=== PATIENT | female | born 2000 | race Caucasian/White ===

== ENCOUNTER 2024-03-04 15:54 | Outpatient (CLI) | payer SELFPAY | END 2024-03-04 23:59 | disposition home or self-care (01) | LOC: RT 15:58 | PROVIDERS: PCP Family Medicine; Visit Provider Family Medicine | DX: R00.2 Palpitations (principal) | CPT/HCPCS: 93225; 93226 ==

== ENCOUNTER 2024-09-09 00:09 | Emergency (ER) | payer SELFPAY ==
[2024-09-09 00:11] VITALS: BP 132/97; PULSE 86; RESP 18; TEMP 36.8; O2SAT 100; BMI 20.5
--- NOTE | 2024-09-09 00:28 | ECG_ITS ---
APPROVED REPORT Exam: Resting ECG HR:83 bpm ECG Measurements Heart Rate 83 AXES WA 178 P 75 QRSd 103 QRS 52 QT 377 T 79 QTc 416 Conclusion SINUS RHYTHM WITH OCCASIONAL VENTRICULAR PREMATURE COMPLEXES INCOMPLETE RIGHT BUNDLE BRANCH BLOCK [90+ ms QRS DURATION, TERMINAL R IN V1/V2, 40+ ms S IN I/aVL/V4/V5/V6] BORDERLINE ECG UNCONFIRMED REPORT Electronically signed by : DOMINGA SAPP, 09/12/2024 06:29:35
[2024-09-09 00:38] LABS: Basophils # 0.1 K/mm3 (0-0.2); Basophils % 1.7 % (0.1-2.0); Eosinophils # 0.1 K/mm3 (0.0-0.4); Hematocrit 40.2 % (37.0-47.0); Hemoglobin 14.2 g/dL (12.2-16.2); Lymphocytes # 1.8 K/mm3 (0.7-4.5); Lymphocytes % 30.5 % (10-50); Mean Corpuscular HGB Conc 35.3 g/dL (31.8-35.4); Mean Corpuscular Hemoglobin 31.7 pg (27.0-31.2); Mean Corpuscular Volume 89.9 fl (81-99); Monocytes # 0.4 K/mm3 (0.1-1.0); Monocytes % 6.4 % (1.7-9.3); Neutrophils # 3.6 K/mm3 (1.8-7.8); Neutrophils % 59.4 % (37.0-80.0); Platelet Count 190 K/mm3 (142-424); Red Blood Count 4.47 M/mm3 (4.20-5.40); Red Cell Distribution Width 13.2 % (11.5-17.5)
[2024-09-09 00:42] LABS: Albumin Level 4.3 g/dl (3.5-5.0); Chloride 108 mmol/L (98-107); Potassium 3.4 mmoL/L (3.5-5.1); Sodium 139 mmol/L (136-145)
[2024-09-09 00:45] LABS: Alanine Aminotransferase 18 U/L (12-78); Albumin/Globulin Ratio 1.7 (1.1-1.8); Alkaline Phosphatase 34 U/L (38-126); Anion Gap 11.4 mEq/L (5-15); Aspartate Amino Transferase 21 U/L (14-36); Bilirubin,Total 0.4 mg/dl (0.2-1.3); Blood Urea Nitrogen 17 mg/dl (7-17); Carbon Dioxide 23 mmol/L (22.0-30.0); Creatinine Clearance Estimated 89 mL/min (50-200); Estimated Glomerular Filt Rate 87 ml/min (>60); GFR (African American) 105 ML/MIN (>60); Globulin 2.6 g/dL (1.3-3.2); HCG Qualitative, Serum Negative (Negative); Total Protein,Serum 6.9 g/dl (6.3-8.2)
[2024-09-09 00:46] LABS: Calcium 9.6 mg/dl (8.4-10.2); Glucose 108 mg/dl (74-100); Magnesium 2.3 mg/dl (1.6-2.3)
--- NOTE | 2024-09-09 00:53 | PC.NURSE ---
EKG 12-lead taken at this time.
--- NOTE | 2024-09-09 01:10 | [facility].EDGENADL ---
Discharge Plan Referrals Follow up/Referrals: Oli Calwdell MD [Primary Care Provider] - See instructions Activity Restrictions/Add. Instructions Additional Instructions/Restrictions: Please follow-up with your primary care provider. Please return to the emergency department if you develop any new or worsening symptoms or become concerned for your health. Clinical Impressions Clinical Impression: Shakiness, Disturbance of sleep Print Language Print Language: [place] Discharge ED Provider: Haile Alfaro General Adult HPI General Chief complaint: Recheck/Abnormal Lab/Rx Stated complaint: weakness, shaking, SOA, tingling in arms and hands Time Seen by Provider: 09/09/24 00:15 Mode of Arrival: Wheelchair Source of Information: Patient and Significant Other Limitations: Physical Limitations Description of Symptoms (Recalled from ER Triage Doc. by RN): Pt presents to ED for shakiness and tingling down both arms and legs. Pt states she's been having these episodes for a couple of months but tonight it was worse. Pt is A&O*4 and spouse is bedside. Pt does not have pain at this time. History of Present Illness HPI narrative: 24-year-old female without significant past medical history presents with shakiness. She reports that these episodes been going on for months. She had an episode tonight that was worse than normal and so she came in. She reports that they only happen after she wakes up from sleep. They only seem to happen after she has had a particularly long day. They are not associated with any emotional stressors as far she is aware. She reports that she will go to sleep and then wake up shaking all over. She is able to stop the shaking if she tries hard, she is conscious during the episodes. They usually last a few minutes but this 1 lasted approximately 45 minutes and so they brought her in. She denies any incontinence, tongue biting, no chest pain palpitations or shortness of breath, no nausea or vomiting during the episodes. She is currently asymptomatic. Related Data Allergies Allergy/AdvReac Type Severity Reaction Status Date / Time prednisone Allergy Severe Rash Verified 09/09/24 00:35 [facility] Disclaimer: The information contained in this section may have been updated after the patient was seen, as this information can be updated by other users. Social History Smoking Status: Never smoker alcohol intake: never current occupational status: other ROS Obtained: Yes All systems reviewed & no additional complaints except as documented Physical Exam General General appearance: alert and in no apparent distress Head Head exam: atraumatic and normocephalic Eye Eye exam: Present normal appearance, PERRL and EOMI ENT ENT exam: Present normal oropharynx and normal external ear exam Neck Neck exam: Present normal inspection and full ROM Chest Chest inspection: Present normal inspection and symmetric chest wall rise; Absent tenderness Respiratory Respiratory exam: Present normal lung sounds bilaterally; Absent respiratory distress Cardiovascular Cardiovascular exam: Present regular rate and normal rhythm Abdominal Exam Abdominal exam: Present soft; Absent distention, tenderness or guarding Extremities Exam Extremities exam: Present normal inspection; Absent edema or joint swelling Back Exam Back exam: Present normal inspection; Absent tenderness Neurological Exam Neurological exam: Present alert and oriented X3; Absent motor sensory deficit Psychiatric Psychiatric exam: Present normal affect and normal mood Skin Skin exam: Present warm, dry and normal color Lymphatic Lymphatic Findings: no adenopathy Medical Decision Making Medical Records Medical records reviewed: Yes I reviewed the patient's medical records. Screening: Per USPSTF and CDC recommendations, given the prevalence of disease in our region, it is our hospital?s policy to screen for HIV and viral Hepatitis for all patients aged 18 and over and those with ongoing risk factors. Dilip Inquiry Pt receiving controlled substance: No Dilip was queried for this patient: No Vital Signs: 09/09/24 00:11 09/09/24 01:32 Temperature 98.3 F 98.2 F Temperature Source Oral Oral Pulse Rate 78 Pulse Rate [Left] 86 Respiratory Rate 18 18 Blood Pressure 103/65 L Blood Pressure [Right Arm] 132/97 H Blood Pressure Mean [Right Arm] 108 02 Sat by Pulse Oximetry 100 Oxygen Delivery Method Room Air Room Air Lab Data Lab results reviewed: Yes I reviewed the patient's lab results. Lab Results 09/09/24 00:28: WBC 6.0, RBC 4.47, Hgb 14.2, Hct 40.2, MCV 89.9, MCH 31.7 H, MCHC 35.3, RDW 13.2, Plt Count 190, MPV 8.0, Neut % (Auto) 59.4, Lymph % (Auto) 30.5, [place] % (Auto) 6.4, Eos % (Auto) 2.0, Baso % (Auto) 1.7, Neut # (Auto) 3.6, Lymph # (Auto) 1.8, [place] # (Auto) 0.4, Eos # (Auto) 0.1, Baso # (Auto) 0.1, Sodium 139, Potassium 3.4 L, Chloride 108 H, Carbon Dioxide 23, Anion Gap 11.4, BUN 17, Creatinine 0.80, Estimated Creat Clear 89, Estimated GFR 87, Est GFR ( Amer) 105, Glucose 108 H, Calcium 9.6, Magnesium 2.3, Total Bilirubin 0.4, AST 21, ALT 18, Alkaline Phosphatase 34 L, Total Protein 6.9, Albumin 4.3, Globulin 2.6, Albumin/Globulin Ratio 1.7, Serum HCG, Qual Negative 09/09/24 00:28 09/09/24: Orders (Tests/Meds): ORDERS Category Date Time Status CBC w/Auto Diff [Complete Blood Count Auto Diff] Stat Lab 09/09/24 Completed CMP [Comprehensive Metabolic Panel] Stat Lab 09/09/24 Completed MAG [Magnesium] Stat Lab 09/09/24 Completed Serum [HCG Qualitative, Serum] Stat Lab 09/09/24: Completed Medical Decision Narrative: 24-year-old female without significant past medical history presents with months of intermittent self-limiting shaking episodes after waking. History was obtained via interactive discussion with patient, family, chart review. On arrival, patient is [afebrile, hemodynamically stable, satting appropriately, alert, oriented x4, GCS 15], moving all extremities spontaneously. Full physical exam performed and significant for no significant physical exam abnormalities. The underlying etiology of patient's symptoms are unclear. They sound too prolonged to be hypnopompic jerks, they do do not sound at all consistent with seizure. She reports that she is checked her blood sugar and vital signs during her immediately after the episodes and they are normal. She denies any significant anxiety or emotional stressors that are happening in her life or associated with the episodes. We will evaluate with basic labs EKG. On re-evaluation, patient [remains afebrile, HD stable.] Laboratory workup independently interpreted by me and significant for no significant leukocytosis, minimal hypokalemia, normal glucose, negative test.. EKG independently interpreted by me and significant for sinus rhythm, ventricular rate of 83, no concerning ST or T wave changes, no evidence of arrhythmia. Incomplete right bundle noted.. These findings were communicated to patient, no evidence of emergent pathology at this time. Patient was encouraged to follow-up with PCP, consider sleep study and further workup. Procedures Risk/Benefits of Procedure(s) Were Explained: Yes Critical Care Critical Care Time Critical Care Time: No
[2024-09-09 01:32] VITALS: BP 103/65; PULSE 78; RESP 18; TEMP 36.8; O2SAT 98
== END 2024-09-09 01:37 | disposition home or self-care (01) ==
PROVIDERS: Emergency Provider Emergency Medicine; PCP Family Medicine
DX: G47.9 Sleep disorder, unspecified (principal); R25.1 Tremor, unspecified; R25.9 Unspecified abnormal involuntary movements; R53.1 Weakness; R06.02 Shortness of breath; R20.2 Paresthesia of skin
CPT/HCPCS: 80053; 83735; 84703; 85025; 93005; 99283